=== PATIENT | female | born 1995 | race Caucasian/White ===

== ENCOUNTER → 2018-11-15 16:06 | Outpatient (CLI) | payer MEDICAID, SELFPAY ==
[2017-10-24 18:28] VITALS: BMI 21.9
[2018-11-18 18:34] LABS: HPV Reflexed? NOT INDICATED
== END ==
PROVIDERS: Visit Provider Obstetrics & Gynecology
DX: Z12.4 Encounter for screening for malignant neoplasm of cervix (principal)
CPT/HCPCS: 88175; G0145